=== PATIENT | female | born 1980 ===

== ENCOUNTER → 2017-09-09 | Outpatient (CLI) | payer BC ==
[~2017-09-09] MED LIST: BUSP15 PO; Crutch1 EACH MISC; IBUP800 PO; Percocet 5-3251 EACH PO; RIZATRIPTAN10 M1 PO; Verotin-Gr Cap1 EACH PO
[2017-09-13 13:05] LABS: HPV Genotype 16 Not Detected (NOTDET); HPV Genotype 18 Not Detected (NOTDET); HPV High Risk Other Not Detected (NOTDET)
== END | disposition home or self-care (01) ==
LOC: LAB 10:44
PROVIDERS: Obstetrics & Gynecology
DX: Z01.419 Encounter for gynecological examination (general) (routine) without abnormal findings (principal)
CPT/HCPCS: 87624; G0123